=== PATIENT | female | born 1965 | race Two or more races ===

== ENCOUNTER 2021-07-24 14:01 | Emergency (ER) | payer MEDICAID ==
[~2021-07-24] VITALS: Ht 162.6 cm; Wt 63.6 kg
[2021-07-24] MEDS ORDERED: IBUPROFEN 600 MG TABLET PO ONE (14:45)
[2021-07-24 16:24] VITALS: BP 116/69
== END 2021-07-24 17:22 | disposition home or self-care (01) ==
LOC: EMS 14:06
DX: M13.861 Other specified arthritis, right knee (principal)
CPT/HCPCS: 99283

== ENCOUNTER 2022-04-11 15:42 | Emergency (ER) | payer MEDICAID, OTHER ==
[~2022-04-11] VITALS: Ht 167.6 cm; Wt 60.5 kg
[2022-04-11 16:05] VITALS: BP 134/88
[2022-04-11] MEDS ORDERED: ACET-66 PO (16:50)
[2022-04-11] MEDS ORDERED: DICL100G31 TP (16:51)
[2022-04-11] MEDS ORDERED: ACETAMINOPHEN 500 MG TABLET PO ONE (17:00)
== END 2022-04-11 17:52 | disposition home or self-care (01) ==
LOC: EMS 15:48
DX: M17.0 Bilateral primary osteoarthritis of knee (principal)
CPT/HCPCS: 99282; Z7502; Z7610

== ENCOUNTER → 2023-06-12 | Outpatient (CLI) | payer OTHER ==
[~2023-06-12] MED LIST: ACET-66 PO; DICL2100G TP
[2023-06-13 02:06] LABS: RUBEOLA (MEASLES) IGG >300.0 AU/mL (Immune >16.4); VARICELLA ZOSTER IGG AB TITER 876 index (Immune >165)
== END | disposition home or self-care (01) ==
LOC: LABMN 09:58
PROVIDERS: ATTEND Internal Medicine
DX: Z02.1 Encounter for pre-employment examination (principal)
CPT/HCPCS: 86706; 86735; 86762; 86765; 86787

== ENCOUNTER 2024-05-06 18:48 | Emergency (ER) | payer BC, OTHER ==
[~2024-05-06] VITALS: Ht 152.4 cm; Wt 63.6 kg
[2024-05-06 19:08] VITALS: TEMP 98.1
[2024-05-06] MEDS ORDERED: IBUP-1506 PO (19:13)
[2024-05-06 22:09] VITALS: BP 129/71; PULSE 72; RESP 20
[2024-05-06] MEDS ORDERED: IBUP-1554 PO (22:25)
[2024-05-06] MEDS ORDERED: ACET-66 PO (22:25)
== END 2024-05-06 23:00 | disposition home or self-care (01) ==
LOC: EMS 18:48
DX: S83.91XA Sprain of unspecified site of right knee, initial encounter (principal); M19.90 Unspecified osteoarthritis, unspecified site; X58.XXXA Exposure to other specified factors, initial encounter; Y93.89 Activity, other specified; Y92.89 Other specified places as the place of occurrence of the external cause; Y99.8 Other external cause status
CPT/HCPCS: 99283

== ENCOUNTER 2024-08-17 14:44 | Emergency (ER) | payer OTHER ==
[~2024-08-17] VITALS: Ht 157.5 cm; Wt 61.4 kg
[~2024-08-17 14:44] MED LIST changes: -DICL2100G TP; +IBUP-1506 PO; +IBUP-1554 PO
[2024-08-17 14:45] VITALS: TEMP 98.7
[2024-08-17 16:12] LABS: APPEARANCE,URINE CLEAR (CLEAR); BILIRUBIN,URINE NEGATIVE (NEGATIVE); COLOR,URINE LIGHT YELLOW (YELLOW); GLUCOSE, URINE (UA) NEGATIVE (NEGATIVE); KETONES,URINE NEGATIVE (NEGATIVE); LEUKOCYTE ESTERASE ,URINE NEGATIVE (NEGATIVE); NITRATE,URINE NEGATIVE (NEGATIVE); OCCULT BLOOD,URINE NEGATIVE (NEGATIVE); PROTEIN,URINE NEGATIVE (NEGATIVE); SPECIFIC GRAVITIY, URINE 1.008 (1.003-1.030); UROBILINOGEN,URINE <=1.0 mg/dL (<=1.0)
[2024-08-17 16:13] LABS: BASOPHILS % (AUTO) 0.3 % (0.0-2.0); EOSINOPHILS % (AUTO) 0.2 % (1.0-6.0); HEMATOCRIT 41.5 % (36-46); HEMOGLOBIN 13.5 g/dL (12.0-16.0); LYMPHOCYTES # (AUTO) 0.6 K/uL (1.0-4.8); LYMPHOCYTES % (AUTO) 5.1 % (22.0-44.0); MEAN CORPUSCULAR HEMOGLOBIN 30.4 pg (26.0-34.0); MEAN CORPUSCULAR HGB CONC 32.5 G/dL (31.0-37.0); MEAN CORPUSCULAR VOLUME 94 fL (80-100); MONOCYTES # (AUTO) 1.3 K/uL (0.1-1.0); MONOCYTES % (AUTO) 10.2 % (2.0-9.0); NEUTROPHILS # (AUTO) 10.4 K/uL (1.8-7.7); NEUTROPHILS % (AUTO) 84.2 % (40.0-70.0); PLATELET COUNT (AUTO) 226 K/uL (150-450); RED BLOOD CELL COUNT(AUTO) 4.43 MIL/uL (4.00-5.20); RED CELL DISTRIBUTION WIDTH 14.4 % (11.5-14.5); WHITE BLOOD COUNT (AUTO) 12.4 K/uL (4.5-11.0)
[2024-08-17 16:24] LABS: ANION GAP 7 mmol/L (8-16); CALCIUM, TOTAL 9.6 mg/dL (8.8-10.5); CARBON DIOXIDE 31 mmol/L (22-29); CHLORIDE 99 mmol/L (98-107); CREATININE 0.67 mg/dL (0.60-1.30); GLOMERULAR FILTR. RATE CALC > 60 mL/min (>60); GLUCOSE,RANDOM 142 mg/dL (70-110); POTASSIUM 3.8 mmol/L (3.5-5.1); SODIUM SERUM 137 mmol/L (136-145); UREA NITROGEN, BLOOD 12 mg/dL (7-18)
[2024-08-17 16:25] LABS: LIPASE 41 U/L (16-77)
[2024-08-17 16:29] LABS: BILIRUBIN,DIRECT 0.1 mg/dL (0.00-0.20); BILIRUBIN,TOTAL 0.5 mg/dL (0.1-1.0); TOTAL PROTEIN, SERUM 7.4 g/dL (6.4-8.2)
[2024-08-17 16:34] LABS: TROPONIN I-HIGH SENSITIVITY 4 ng/L (<51)
[2024-08-17] MEDS: ONDANSETRON HCL 4 MG/2 ML VIAL IVP ONE (16:35)
[2024-08-17] MEDS: DIPHENOXYLATE/ATROP 2.5-0.025 MG TABLET PO ONE (16:35)
[2024-08-17] MEDS: SODIUM CHLORIDE 0.9% 1,000 ML IV ONE (16:35)
[2024-08-17] MEDS ORDERED: ONDA-104 PO (18:20)
[2024-08-17] MEDS ORDERED: HYOS0.122 PO (18:20)
[2024-08-17 19:00] VITALS: BP 133/67; PULSE 65; RESP 17; O2SAT 99
== END 2024-08-17 19:08 | disposition home or self-care (01) ==
LOC: EMS 14:44
DX: A08.4 Viral intestinal infection, unspecified (principal); R11.2 Nausea with vomiting, unspecified
CPT/HCPCS: 99285; 74176; 96374; 96361; 80048; 80076; 81003; 83690; 84484; 85025; 36415; 93005; J2405; J7030

== ENCOUNTER 2024-09-28 16:02 | Emergency (ER) | payer OTHER ==
[~2024-09-28] VITALS: Ht 165.1 cm; Wt 73.0 kg
[~2024-09-28 16:02] MED LIST changes: -ACET-66 PO; +HYOS0.122 PO; -IBUP-1506 PO; -IBUP-1554 PO; +ONDA-104 PO
[2024-09-28 16:11] VITALS: BP 130/69; PULSE 51; RESP 16; TEMP 98; O2SAT 98
[2024-09-28] MEDS ORDERED: METH-812 PO (16:36)
[2024-09-28] MEDS ORDERED: IBUP-1492 PO (16:36)
[2024-09-28] MEDS: KETOROLAC TROMETHAMINE 30 MG/ML VIAL IM ONE (16:56)
== END 2024-09-28 17:48 | disposition home or self-care (01) ==
LOC: EMS 16:02
DX: S39.012A Strain of muscle, fascia and tendon of lower back, initial encounter (principal); M19.90 Unspecified osteoarthritis, unspecified site; X50.0XXA Overexertion from strenuous movement or load, initial encounter; Y93.89 Activity, other specified; Y92.89 Other specified places as the place of occurrence of the external cause; Y99.0 Civilian activity done for income or pay
CPT/HCPCS: 99283; 96372; J1885

== ENCOUNTER 2024-11-13 00:33 | Emergency (ER) | payer OTHER ==
[~2024-11-13] VITALS: Ht 165.1 cm; Wt 63.2 kg
[~2024-11-13 00:33] MED LIST changes: +IBUP-1492 PO; +METH-812 PO
[2024-11-13 00:41] VITALS: BP 125/80; PULSE 58; RESP 19; TEMP 98; O2SAT 100
[2024-11-13] MEDS ORDERED: IBUP-1492 PO (01:50)
[2024-11-13] MEDS ORDERED: LIDO700A15 TP (01:50)
[2024-11-13] MEDS ORDERED: OXYC5 PO (01:50)
[2024-11-13] MEDS: KETOROLAC TROMETHAMINE 30 MG/ML VIAL IM ONE (01:54)
[2024-11-13] MEDS: ACETAMINOPHEN 500 MG TABLET PO ONE (01:54)
[2024-11-13] MEDS: OxyCODONE HCL 5 MG IR TABLET PO ONE (01:54)
[2024-11-13] MEDS: LIDOCAINE 5% TRANSDERMAL PATCH TD ONE (01:55)
== END 2024-11-13 02:10 | disposition home or self-care (01) ==
LOC: EMS 00:40
DX: S39.012A Strain of muscle, fascia and tendon of lower back, initial encounter (principal); X50.0XXA Overexertion from strenuous movement or load, initial encounter; Y93.89 Activity, other specified; Y92.89 Other specified places as the place of occurrence of the external cause; Y99.0 Civilian activity done for income or pay
CPT/HCPCS: 99284; 96372; J1885